=== PATIENT | female | born 1955 | race Caucasian/White ===

== ENCOUNTER → 2019-12-08 12:21 | Outpatient (CLI) | payer OTHER, SELFPAY ==
--- NOTE | ~2019-12-08 | DEXA_ITS ---
Bone Density Report Name: Teri Escobar Age: 64 Sex: Female Ethnicity: White Date of : 1955 Indication: postmenopausal osteoporosis; height loss; prior fracture; rheumatoid arthritis; Referring Provider: STEPHANI EDMONDSON Study: Bone densitometry was performed. Exam Date: December 08, 2019 Accession number: [id number] Bone Density: Region BMD T-score Z-score Classification AP Spine (L1-L4) 0.790 -2.3 -0.6 Osteopenia Femoral Neck (Left) 0.595 -2.3 -0.8 Osteopenia Total Hip (Left) 0.637 -2.5 -1.3 Osteoporosis Femoral Neck (Right) 0.690 -1.4 0.0 Osteopenia Total Hip (Right) 0.590 -2.9 -1.7 Osteoporosis Total Hip Mean 0.614 -2.7 -1.5 Osteoporosis World Health Organization criteria for BMD impression classify patients as: Normal (T-score at or above -1.0), Osteopenia (T-score between -1.0 and -2.5), or Osteoporosis (T-score at or below -2.5). 10-year Fracture Risk: FRAX not reported because: Some T-score for Spine Total or Hip Total or Femoral Neck at or below -2.5 Prior hip or vertebral fracture Previous Exams: Region Exam Age BMD T-score BMD Change BMD Change Date g/cm2 vs Baseline vs Previous AP Spine(L1-L4) 12/08/2019 64 0.790 -2.3 -0.097* 0.002 09/01/2017 62 0.788 -2.4 -0.099* 0.009 08/29/2015 60 0.779 -2.4 -0.108* -0.012 07/19/2013 57 0.792 -2.3 -0.096* 0.002 03/04/2011 55 0.790 -2.3 -0.097* -0.097* 01/06/2009 53 0.887 -1.5 Total Hip(Left) 12/08/2019 64 0.637 -2.5 -0.050* 0.011 09/01/2017 62 0.627 -2.6 -0.061* 0.003 08/29/2015 60 0.623 -2.6 -0.064* -0.041* 07/19/2013 57 0.665 -2.3 -0.023 0.011 03/04/2011 55 0.654 -2.4 -0.033* -0.033* 01/06/2009 53 0.688 -2.1 Total Hip(Right) 12/08/2019 64 0.590 -2.9 -0.139* -0.031* 09/01/2017 62 0.621 -2.6 -0.109* -0.037* 08/29/2015 60 0.657 -2.3 -0.072* -0.025 07/19/2013 57 0.682 -2.1 -0.048* 0.017 03/04/2011 55 0.665 -2.3 -0.064* -0.064* 01/06/2009 53 0.730 -1.7 *Denotes significance at 95% confidence level, LSC for AP Spine = 0.022 g/cm2, LSC for Total Hip = 0.027 g/cm2 Clinical Information Provided by Patient: Have had a previous hip or vertebral fracture Has had a low trauma fracture Has rheumatoid arthritis Has used t
== END ==
PROVIDERS: Visit Provider Obstetrics & Gynecology Gynecology
DX: Z78.0 Asymptomatic menopausal state (principal); M85.88 Other specified disorders of bone density and structure, other site; M85.852 Other specified disorders of bone density and structure, left thigh; M85.851 Other specified disorders of bone density and structure, right thigh; M81.0 Age-related osteoporosis without current pathological fracture
CPT/HCPCS: 77080

== ENCOUNTER → 2021-06-22 03:01 | Outpatient (CLI) | payer OTHER, SELFPAY ==
[2021-06-22 18:36] LABS: SARS-CoV-2 RNA PCR Negative
== END ==
PROVIDERS: PCP Student in an Organized Health Care Education/Training Program; Visit Provider Student in an Organized Health Care Education/Training Program
DX: R68.89 Other general symptoms and signs (principal); Z20.822 Contact with and (suspected) exposure to COVID-19
CPT/HCPCS: C9803; U0003; U0005

== ENCOUNTER → 2021-08-28 12:01 | Outpatient (CLI) | payer OTHER, SELFPAY ==
--- NOTE | ~2021-08-28 | US_ITS ---
EXAMINATION: US pelvic complete DATE: 08/28/2021 12:24 INDICATION: Pelvic pain TECHNIQUE: Multiple transabdominal sonographic images of the pelvis were obtained. COMPARISON: None FINDINGS: The uterus measures 6.3 x 2.3 x 4.1 cm. The endometrial complex measures 4 mm. The right ov johnny is not visualized however no right adnexal abnormality is seen. The left ovary measures 2 x 1.3 x 1.6 cm and contains an 8 mm cyst. There is no free fluid in the pelvis. IMPRESSION: 1. No sonographic correlate for the patient's symptoms. Reviewed, dictated and finalized at location A. RVENTIONAL NEURORADIOLOGIST
== END ==
PROVIDERS: PCP Student in an Organized Health Care Education/Training Program; Visit Provider Nurse Practitioner
DX: R10.2 Pelvic and perineal pain (principal)
CPT/HCPCS: 76856

== ENCOUNTER → 2021-10-16 13:28 | Outpatient (CLI) | payer OTHER, SELFPAY ==
--- NOTE | ~2021-10-16 | MM_ITS ---
EXAMINATION: MM screening [facility] BI w jermaine HISTORY: Screening mammogram TECHNIQUE: Craniocaudal and mediolateral oblique 3-D tomosynthesis images were obtained and synthetic 2-D images were generated. CAD analysis was submitted and interpreted. COMPARISON: 10/28/2017, 04/13/2012 BREAST PARENCHYMAL COMPOSITION: The breasts are heterogeneously dense, which may obscure small masses . FINDINGS: Scattered benign-appearing calcifications are present. There is no evidence of suspicious m ass, calcification, or architectural distortion to suggest malignancy in either breast. There has bee n no suspicious interval change. IMPRESSION: 1. No mammographic evidence of malignancy. 2. Recommend routine screening mammography in one year. BI-RADS Category 2: Benign finding(s). Reviewed, dictated and finalized at location A. TICE BUILDER
--- NOTE | ~2021-10-16 | US_ITS ---
EXAMINATION: US pelvic complete DATE: 10/16/2021 13:52 INDICATION: Follow-up ovarian cyst Comparison:Ultrasound dated 08/28/2021 TECHNIQUE: Multiple transabdominal and endovaginal sonographic images of the pelvis performed. FINDINGS: The uterus measures 6.2 x 2 x 4.4 cm. The endometrial complex measures 4 mm. The ovaries are not visualized. No adnexal masses or cysts are seen. There is no free fluid in the pelvis. There are no abnormal masses seen on either side. IMPRESSION: 1. Unremarkable pelvic ultrasound. No adnexal masses or cyst identified on the current study. Reviewed, dictated and finalized at location B. CULAR BIOLOGY DIRECTOR
== END ==
PROVIDERS: Visit Provider Nurse Practitioner
DX: Z12.31 Encounter for screening mammogram for malignant neoplasm of breast (principal); N83.202 Unspecified ovarian cyst, left side
CPT/HCPCS: 76856; 77063; 77067

== ENCOUNTER 2022-02-06 09:56 | Outpatient (CLI) | payer OTHER, SELFPAY ==
--- NOTE | ~2022-02-06 | US_ITS ---
EXAMINATION: US carotid duplex BI DATE: 02/06/2022 10:32 INDICATION: TECHNIQUE: Grayscale, color Doppler, and pulsed Doppler images of the cervical carotid arteries were obtained. The degree of vessel stenosis is placed in one of the following categories: normal, <50%, 5 0-69%, >=70% but less than near-occlusion, near-occlusion, or total occlusion. Note that percent sten osis relative to normal distal artery lumen diameter is indirectly measured from velocity measurement s as described by Geoffrey, et al. Radiology 2003; 229:340-346. Notes: Normal: Peak systolic velocity <125 centimeters/sec and no plaque <50%. Peak systolic velocity <125 ( EDV <40; ICA/CCA PSV ratio <2.0; used these factors only a tandem lesions or low cardiac output or co ntralateral disease) 50-69 %: PSV 125-230 (EDV 40-100; ratio 2-4) >= 70% but less than near occlusion: PSV greater than 230 (EDV > 100; ratio> 4.0) Near Occlusion: PSV that is variable; markedly narrowed lumen Occlusion: Absent flow on color/spectral Doppler and no lumen on tinoco scale. COMPARISON: None. FINDINGS: RIGHT: The right common carotid artery (CCA) peak systolic velocity (PSV) is 92 cm/s. The right internal car otid artery (ICA) PSV is 84 cm/s. The right ICA end-diastolic velocity (EDV) is 31 cm/s. The right IC A/CCA PSV ratio is 0.9. The external carotid artery (ECA) PSV is 76 cm/s. There is antegrade flow in the right vertebral artery. LEFT: The left CCA PSV is 90 cm/s. The left ICA PSV is 1:15 cm/s. The left ICA EDV is 32 cm/s. The left ICA /CCA PSV ratio is 1.3. The ECA PSV is 59 cm/s. There is antegrade flow in the left vertebral artery. IMPRESSION: 1. Less than 50% stenosis in the right internal carotid artery by sonographic criteria. 2. Less than 50% stenosis in the left internal carotid artery by sonographic criteria. Reviewed, dictated and finalized at location A. IMPRESSION: 1. Less than 50% stenosis in the right internal carotid artery by sonographic albino morgan. 2. Less than 50% stenosis in the left internal carotid artery by sonographic archie chaparro.
== END 2022-02-06 09:57 | disposition home or self-care (01) ==
PROVIDERS: PCP Student in an Organized Health Care Education/Training Program; Visit Provider Student in an Organized Health Care Education/Training Program
DX: I65.23 Occlusion and stenosis of bilateral carotid arteries (principal)
CPT/HCPCS: 93880

== ENCOUNTER 2022-09-16 17:06 | Emergency (ER) | payer OTHER, SELFPAY ==
--- NOTE | 2022-09-16 17:16 | ED.URI ---
HPI - URI/Sore Throat General Chief Complaint: Upper Respiratory Infection Stated Complaint: cov pos, nausea, diarrhea Time Seen by Provider: 09/16/22 17:45 Source: patient and RN notes reviewed Mode of arrival: ambulatory Limitations: no limitations History of Present Illness HPI Narrative: 67 old female presents with concern for ongoing nasal congestion, drainage, nausea and diarrhea after a COVID diagnosis. Reports she started symptoms 12 days ago. Reports her nasal congestion has continued. 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 Denies chills, sweats, or fever. EYES: Denies visual changes, redness, or discharge. ENT: Reports rhinorrhea, congestion, sinus pain. Denies otalgia and sore throat. CARDIOVASCULAR: Denies chest pain, palpitations, or edema. RESPIRATORY: Reports cough. Denies dyspnea. GASTROINTESTINAL: Denies abdominal pain, vomiting. Reports nausea, diarrhea SKIN: Denies rash or itching. MUSCULOSKELETAL: Denies myalgia. NEUROLOGIC: Denies headache. All systems reviewed & are unremarkable except as noted in HPI and below PMFSH Family History Family History (System 12/06/19 @ 09:09 by Mey Ambrose) Other Family history of alcoholism Family history of arthritis Social History Social History (System 12/06/19 @ 09:09 by Mey Ambrose) Smoking status: Former smoker Smoking end date: 09/22/79 Alcohol intake: current Comments At time of signature, agree with nursing past medical, surgical, social and family history. There is no relevant family history pertinent to the presenting complaint Exam Narrative: GENERAL: Well-appearing, well-nourished, and in no acute distress. HEAD: Normocephalic EYES: PERRLA, conjunctivae clear ENT: Nares clear, turbinates edematous and erythematous. Mucous membranes moist. TM pearly tinoco with dull light reflex bilaterally; no tragal tenderness. Oropharynx not erythematous without lesions. Tonsils not enlarged and without exudate, no drooling, no hoarseness, no trismus, uvula midline. NECK: Supple. No lymphadenopathy CHEST: Clear to auscultation, breath sounds equal. No wheezing, rhonchi, rales, or stridor. No respiratory distress, speaks in full sentences. HEART: Regular rate and rhythm. No murmur heard. SKIN: Warm, dry, no rash. NEURO: Alert and oriented x3. PSYCH: Normal mood and affect Course Course Emergency Course: Patient is aware of diagnosis, understands and agrees to treatment plan. Anticipatory guidance given. Patient agrees to follow-up as directed and is aware of reasons to seek care at the emergency department. Portions of this record may have been created with voice recognition software Level of Care: Express Care Visit Vital Signs Vital signs: Reviewed. MDM - URI/Sore Throat MDM Narrative Medical decision making narrative: Differential diagnosis considered: Boswell virus, strep pharyngitis, allergic rhinitis, upper respiratory tract infection, sinusitis, rhinosinusitis, nasopharyngitis. viral pharyngitis, otitis media, otitis externa, pneumonia, bronchitis, viral cough syndrome, viral syndrome, and influenza. Exam findings show no acute concerns or changes; patient is non-toxic appearing and is in no distress. Patient is appropriate for outpatient treatment and follow-up. Lab Data Attestation: I reviewed the patient's lab results. Critical Care Time Critical Care Time Critical Care Time: No Discharge Plan Di
[2022-09-16 17:23] VITALS: BP 111/58; PULSE 77; RESP 16; TEMP 36.6; O2SAT 99
== END 2022-09-16 18:00 | disposition home or self-care (01) ==
PROVIDERS: Emergency Provider Nurse Practitioner; PCP Student in an Organized Health Care Education/Training Program
DX: J32.9 Chronic sinusitis, unspecified (principal); R11.0 Nausea; Z86.16 Personal history of COVID-19; Z87.891 Personal history of nicotine dependence; M19.90 Unspecified osteoarthritis, unspecified site; M06.9 Rheumatoid arthritis, unspecified
CPT/HCPCS: 99213; G0463

== ENCOUNTER 2024-04-06 07:45 | Outpatient (CLI) | payer OTHER, SELFPAY ==
--- NOTE | ~2024-04-06 | US_ITS ---
EXAMINATION: US abdomen duplex complete DATE: 04/06/2024 08:42 INDICATION: Abnormal weight loss. TECHNIQUE: Multiple grayscale and Doppler ultrasound images of the aorta, celiac and mesenteric arter ies were obtained. COMPARISON: None FINDINGS: There are scattered hyperechoic and shadowing calcified atherosclerotic plaque along the normal calib er abdominal aorta without hemodynamically significant stenosis. Normal triphasic waveforms with mult iple laminar flow in the aorta peak systolic velocity of 66 cm/s. The visualized proximal to mid infe rior vena cava is normal with normal venous waveform. Peak systolic velocity at the celiac axis is 18 3 cm/s and with and diastolic velocity of 12 cm/s. Peak systolic velocity in the superior mesenteric artery between 70-105 cm/s with end diastolic velocity of 12-13 cm/s. Inferior mesenteric artery peak systolic velocity of 73 cm/s with end-diastolic velocity of 9 cm/s. Each artery demonstrates brisk s ystolic upstroke. IMPRESSION: 1. Atherosclerotic aorta which is normal in caliber with no significant stenosis. 2. Arterial peak systolic velocities and waveforms in the celiac axis, superior mesenteric artery and inferior mesenteric artery are within normal limits with no evident hemodynamic significant stenosis . Reviewed, dictated and finalized at location A. IMPRESSION: 1. Atherosclerotic aorta which is normal in caliber with no significant stenosi s. 2. Arterial peak systolic velocities and waveforms in the celiac axis, superior mesenteric artery and inferior mesenteric artery are within normal limits with no evident hemodynamic significant stenosis.
== END 2024-04-06 07:46 | disposition home or self-care (01) ==
PROVIDERS: PCP Student in an Organized Health Care Education/Training Program; Visit Provider Nurse Practitioner Family
DX: I70.0 Atherosclerosis of aorta (principal); R63.4 Abnormal weight loss; R63.0 Anorexia; R93.3 Abnormal findings on diagnostic imaging of other parts of digestive tract
CPT/HCPCS: 93978